=== PATIENT | female | born 1950 | race Caucasian/White ===

== ENCOUNTER 2023-12-19 08:57 | Outpatient (AMB) | payer MEDICARE, OTHER, SELFPAY ==
--- NOTE | 2023-12-19 09:15 | A.OFFVIS_ITS ---
VS Expanded 12/19/23 09:23 12/25/23 11:58 Height 5 ft 1 in 5 ft 1 in Weight 162 lb 162 lb BMI 30.6 30.6 Intake Visit Reasons: DM/ # Not in service Allergies lactose [LACTOSE] Allergy (Unknown, Unverified 12/19/19 16:54) GI UPSET latex [LATEX] Allergy (Unknown, Unverified 12/19/19 16:54) REDNESS,SWELLING meperidine [From DEMEROL] Allergy (Unknown, Unverified 12/19/19 16:54) N/V Nutrition Presentation Details: Pt presents for initial MNT for Pre DM. Pt was referred by PCP. BS Monitoring Most Recent Diabetes Results: No Data to Display GDW-Tmedclk-Zd.Jeor Equation Height: 5 ft 1 in Weight: 162 lb Resting Metabolic Rate: 1187.22 Calculated Activity Level: Mild Activity Calories Needed to Maintain Weight: 1632.43 Diagnosis Nutrition problem #1: food nutri know defi As related to (etiology) #1: diagnosis As evidenced by (sign/symptom) #1: knowledge deficit of diet Monitoring/Goals Nutrition problem monitoring: level of knowledge/skill and total CHO intake Nutrition goal/outcome: list 3 CHO foods Outcome progress: verbalized understanding Assessment & Plan Assessment & Plan (1) Pre-diabetes: Code(s): R73.03 - Prediabetes Category: Medical Plan: Wt: 74 Kg ( 12/25 ) Est kcal needs as per MSJ: 1600 (40% carb, 30% protein/fat) Est fluid needs as per 25-30 ml/d: 2200 Est prot per day as per 1 g/kg bw: 74 Recommend fiber intake : 8-10 g per day and gradually increase to 25-28 g per day for women and 35-38 g for men or as tolerated Recommend sodium intake per day : less than 2000 mg Educated patient on: ( R = reviewed V = verbalizes understanding N/R = needs review N/A = not applicable * Food sources of carbohydrate, adequate serving sizes and its role in various health conditions: R * Differences between complex carbohydrates a simple carbohydrates, role of fiber in diet: R * Lean protein sources of foods: R V * Differences between types of fats and role in diet (mono on saturated fat fatty acids, saturated fatty acids, trans fats): R V N/R * Food sources of sodium in salt and healthy modifications for heart health in kidney health: R V R/V * Vitamins and minerals: R V N/R * Healthy plate method concept: R * Physical activity: Benefits a precaution: R V N/R * Hypoglycemia protocol (rule of 15): R V N/R * Dietary prevention of Hyperglycemia: R Patient Instructions: Work on following healthy plate method Reduce on sugars from pastries/beverages see meal plan ideas consisting of 45-60 g carb per meal and 0-20 g as snack Coding Level of Care Code Nutr Indiv Intake (05781) Diagnoses Pre-diabetes R73.03 Time Spent (min) 30
[2023-12-19 09:23] VITALS: BMI 30.6
[2023-12-25 11:58] VITALS: BMI 30.6
== END 2023-12-19 09:53 | disposition home or self-care (01) ==
PROVIDERS: PCP Internal Medicine; Visit Provider Dietitian, Registered
DX: R73.03 Prediabetes (principal)

== ENCOUNTER → 2023-12-19 08:57 | Outpatient (BNVA) | payer MEDICARE, OTHER, SELFPAY | PROVIDERS: PCP Internal Medicine; Visit Provider Dietitian, Registered | DX: R73.03 Prediabetes (principal); Z71.3 Dietary counseling and surveillance | CPT/HCPCS: 97802 ==

== ENCOUNTER 2024-06-10 10:26 | Outpatient (REF) | payer MEDICARE, OTHER, SELFPAY ==
[2024-06-10 10:49] VITALS: BP 146/81; PULSE 61; RESP 16; TEMP 36.3; O2SAT 95; BMI 30.4
== END 2024-06-10 10:27 | disposition home or self-care (01) ==
LOC: HO.MS 10:26
PROVIDERS: PCP Internal Medicine; Visit Provider Ophthalmology
PROC: (CPT 66821; principal; 2024-06-10 14:30)
DX: H26.492 Other secondary cataract, left eye (principal)
CPT/HCPCS: 66821

== ENCOUNTER 2024-08-22 12:55 | Outpatient (AMB) | payer MEDICARE, OTHER, SELFPAY ==
--- NOTE | 2024-08-22 13:47 | A.OFFVIS_ITS ---
Intake Intake Visit Reasons: T2DM Human Resources Psychologist Required: No Accompanied by: Daughter Allergies lactose [LACTOSE] Allergy (Unknown, Unverified 12/19/19 16:54) GI UPSET latex [LATEX] Allergy (Unknown, Unverified 12/19/19 16:54) REDNESS,SWELLING meperidine [From DEMEROL] Allergy (Unknown, Unverified 12/19/19 16:54) N/V HPI Comprehensive Diabetes Asmnt Most Recent Diabetes Results: No Data to Display Assessment & Plan Assessment & Plan (1) Pre-diabetes: Code(s): R73.03 - Prediabetes Plan: Learning objectives: The patient was provided with verbal and written education on the following topics as outlined below. The patient met all learning objectives and was able to verbalize understanding and provide teach back of education topics discussed . The patient was provided with the opportunity to ask questions and all questions were answered. Patient Assessment Assess patient education level/literacy/barriers July 2024, 7.4%, Pt is not currently taking diabetes medication Patient questions/concerns Pt would like to do a CGM trial What is Diabetes? Pathophysiology How the body produces and uses insulin Identify type of DM Risk factors Signs of Diabetes Brief overview of Diabetes Management Monitoring blood sugar Following a meal plan Regular exercise Maintaining a healthy weight Taking medication as needed Members of the care team (PCP, RN, MA, RD, CDE, bookkeeping machine operator) Blood glucose monitoring When/how often to test Target blood sugar ranges Pt does not test her glucose at this time Introduction to Nutrition Importance of healthy diet in managing DM Diet is personalized to individual preference Review patient?s regular diet/food preferences Who prepares meals/does food shopping/ Dining out?/ Barriers? How diet effects glucose Eating 3 balanced meals a day with small, healthy snacks between meals Review food groups Carbohydrates: What is a carbohydrate/Which food/food groups are considered carbohydrates Effect of carbohydrates on blood glucose Portion sizes Reading food labels Basic carb counting (if applicable per nursing assessment) Plate method Meal planning Recommendations: Follow plate method, consistent carbs and read nutritional labels. Educational Materials: The patient was provided with the following written educational materials: Planning Healthy Meals Handout Patient Response to instructions: Comprehension of Instructions: Fair Readiness to make changes: Contemplation How confident they feel about making changes: Positive Portions of this note were created using voice recognition software, please excuse any words or phrases that may have been misinterpreted. Patient Instructions: Include regular daily activity. ADA recommends 30 minutes of exercise 5 days a week. Weight loss talk to PCP or Corporate Travel Coordinator before starting new plan. Test blood sugar as directed; Fasting and 2hpp largest meal. Watch trends in results. Utilize results and to assess how food, physical activity and medications affect blood sugar results. Bring glucometer or CGM to next visit. Be knowledgeable about diabetes medication, its action, side effects, efficacy, toxicity, prescribed dosage, appropriate timing and frequency of administration, effect of missed and delayed doses and instructions for storage, travel and safety. Problem solving techniques to monitor hypo/hyperglycemia episodes and treatments. Reduce risk reduction behaviors, smoking cessation, regular eye, foot and dental examinations. Coding Level of Care Code Est Pt Level 1 (65796) Diagnoses Pre-diabetes R73.03
== END 2024-08-22 13:50 | disposition home or self-care (01) ==
LOC: HO.ENCR 12:56
PROVIDERS: PCP Internal Medicine; Visit Provider Registered Nurse Diabetes Educator
DX: R73.03 Prediabetes (principal)

== ENCOUNTER → 2024-08-22 12:55 | Outpatient (BNVA) | payer MEDICARE, OTHER, SELFPAY | PROVIDERS: PCP Internal Medicine; Visit Provider Registered Nurse Diabetes Educator | DX: R73.03 Prediabetes (principal) | CPT/HCPCS: 99211 ==

== ENCOUNTER 2024-09-09 13:55 | Outpatient (AMB) | payer MEDICARE, OTHER, SELFPAY ==
--- NOTE | 2024-09-09 14:29 | MHC.AMDMED ---
Intake Intake Visit Reasons: T2DM 60 MIN Accompanied by: Self / Same As Patient Allergies lactose [LACTOSE] Allergy (Unknown, Unverified 12/19/19 16:54) GI UPSET latex [LATEX] Allergy (Unknown, Unverified 12/19/19 16:54) REDNESS,SWELLING meperidine [From DEMEROL] Allergy (Unknown, Unverified 12/19/19 16:54) N/V HPI Comprehensive Diabetes Asmnt Most Recent Diabetes Results: No Data to Display Assessment & Plan Assessment & Plan (1) Pre-diabetes: Code(s): R73.03 - Prediabetes Plan: Patient at visit to set up an sample Dexcom G7 with locomotive engineer diesel Instructed patient sensors water proof you can shower, or swim do not submerge sensor in water for over 30 minutes Is sensor falls off cannot put back in you need to replace sensor, customer service number given to patient for sensor replacement Sensor placed on the back of right arm Patient left visit with sensor in warmup Reviewed how to interpret trend arrows Discussed lag time between finger stick and sensor data.? Instructed patient the importance of having blood glucometer for backup testing if needed Reviewed delay of CGM from fingersticks Reminded Pt that if symptoms do not match sensor still needs to check fingersticks. Portions of this note were created using voice recognition software, please excuse any words or phrases that may have been misinterpreted. Patient Instructions: Patient instruction: CGM provides information on blood glucose control throughout the day, including hyperglycemia and hypoglycemia. ? Continue to monitor blood glucose as instructed. Follow nutrition guidelines provided. Report any discomfort promptly to health care provider. ?Stay well-hydrated. You can bathe ,shower, swim and exercise while wearing the glucose sensor. Do not submerge glucose sensor in water for more than 30 minutes. Coding Level of Care Code Est Pt Level 1 (76456) Diagnoses Pre-diabetes R73.03
== END 2024-09-09 14:39 | disposition home or self-care (01) ==
LOC: HO.ENCR 13:55
PROVIDERS: PCP Internal Medicine; Visit Provider Registered Nurse Diabetes Educator
DX: R73.03 Prediabetes (principal)

== ENCOUNTER → 2024-09-09 13:55 | Outpatient (BNVA) | payer MEDICARE, OTHER, SELFPAY | PROVIDERS: PCP Internal Medicine; Visit Provider Registered Nurse Diabetes Educator | DX: R73.03 Prediabetes (principal) | CPT/HCPCS: 99211 ==

== ENCOUNTER 2024-09-19 13:03 | Outpatient (AMB) | payer MEDICARE, OTHER, SELFPAY ==
--- NOTE | 2024-09-19 13:38 | MHC.AMDMED ---
Intake Intake Visit Reasons: f/u 10 days Furnace Combination Analyst Required: No Accompanied by: Self / Same As Patient Allergies lactose (LACTOSE) Allergy (Unknown, Unverified 12/19/19 16:54) GI UPSET latex (LATEX) Allergy (Unknown, Unverified 12/19/19 16:54) REDNESS,SWELLING meperidine (From DEMEROL) Allergy (Unknown, Unverified 12/19/19 16:54) N/V Assessment & Plan Assessment & Plan (1) Pre-diabetes: Code(s): R73.03 - Prediabetes Plan: Personal Continuous Glucose Monitor: Patients CGM information reviewed, Pt Dexcom G7 trial Patient appears to be having postprandial hyperglycemia. Patient reports she eats small portions of carbohydrates, under 45 g at mealtime. Patient also asked about increase in glucose level when she has not had anything to eat. Explained to patient that blood glucose can change due to release of glucose from the liver. In addition even if eating appropriate portions of carbohydrates the body may not be able to produce enough insulin to cover those carbohydrates. Patient has upcoming appointment in November with PCP for her next A1c. If A1c continues to be elevated patient will contact clinic to set up next Diabetes Education appointment. Patient had questions regarding metformin, reviewed action of metformin with patient. Portions of this note were created using voice recognition software, please excuse any words or phrases that may have been misinterpreted. Coding Level of Care Code Est Pt Level 1 (38509) Diagnoses Pre-diabetes R73.03
== END 2024-09-19 14:02 | disposition home or self-care (01) ==
LOC: HO.ENCR 13:03
PROVIDERS: PCP Internal Medicine; Visit Provider Registered Nurse Diabetes Educator
DX: R73.03 Prediabetes (principal)

== ENCOUNTER → 2024-09-19 13:03 | Outpatient (BNVA) | payer MEDICARE, OTHER, SELFPAY | PROVIDERS: PCP Internal Medicine; Visit Provider Registered Nurse Diabetes Educator | DX: R73.03 Prediabetes (principal) | CPT/HCPCS: 99211 ==